=== PATIENT | male | born 1975 | race Caucasian/White ===

== ENCOUNTER 2016-12-19 13:16 | Emergency (ER) | payer OTHER ==
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
[~2016-12-19 13:16] MED LIST: NO MEDICATIONS
== END 2016-12-19 15:10 | disposition short-term general hospital (02) ==
LOC: CED 13:16
DX: S69.82XA Other specified injuries of left wrist, hand and finger(s), initial encounter (principal); W20.8XXA Other cause of strike by thrown, projected or falling object, initial encounter; Y92.009 Unspecified place in unspecified non-institutional (private) residence as the place of occurrence of the external cause
CPT/HCPCS: 73130; 96372; 99283; J1170